=== PATIENT | male | born 1980 | race African-American/Black ===

== ENCOUNTER 2018-10-30 20:33 | Emergency (ER) | payer MEDICAID ==
[~2018-10-30] VITALS: Ht 182.9 cm; Wt 108.9 kg
[2018-10-30 21:04] VITALS: BP 215/107
--- NOTE | 2018-10-30 21:04 | NUR ---
TO BED # 11 AMBULATORY, REPORT GIVEN TO AAKASH HENRY.
--- NOTE | 2018-10-30 21:04 | NUR ---
CAME IN WITH C/O RIGHT SIDE FRONTAL HEADACHE RADIAITING ACROSS FOREHEAD X 2 DAYS. PT REPORTS HIGH BP AT HOME. DENIES VISUAL DISTURBANCES, LIGHTHEADEDNESS/DIZZINESS. DENIES CHEST PAIN. LUNGS CTAB, RESPIRATIONS EVEN AND UNLABORED.PT REPORTS COMPLIANCE TO BP MEDS. PMH: HTN, DM, HLD
[2018-10-30] MEDS ORDERED: cloNIDine 0.1 MG TAB PO ONE (21:40)
[2018-10-30] MEDS ORDERED: MORPHINE SULFATE 4 MG/ML SYR IVP ONE (22:00)
--- NOTE | 2018-10-30 22:02 | NUR ---
PT RETURN FROM CT
[2018-10-30] MEDS ORDERED: KETOROLAC 30 MG/ML VIAL IM ONE (22:10)
[2018-10-30] MEDS ORDERED: hydrALAZINE 20 MG/ML VIAL IVP ONE (23:00)
--- NOTE | 2018-10-30 23:10 | NUR ---
PT DENIES ANY HEADACHE, BUT BP CONTINUES TO BE HIGH: 223/127, [address] SALINAS AWARE.
[2018-10-30] MEDS ORDERED: METOPROLOL 5 MG/5 ML VIAL IVP ONE (23:35)
--- NOTE | 2018-10-31 00:12 | NUR ---
Dr. Moncada evaluating patient at bedside.
[2018-10-31 00:28] VITALS: BP 181/106
--- NOTE | 2018-10-31 00:29 | NUR ---
Patient discharged with v/s stable. Written and verbal after care instructions given and explained. Patient verbalized understanding. Ambulatory with steady gait. All questions addressed prior to discharge. Advised to follow up with PMD. ER MD AWARE OF PT BP. OKAY TO DISCHARGE PT.
== END 2018-10-31 00:29 | disposition home or self-care (01) ==
LOC: MED 20:33
DX: I10 Essential (primary) hypertension (principal); R51 Headache; E11.9 Type 2 diabetes mellitus without complications; E78.5 Hyperlipidemia, unspecified
CPT/HCPCS: 70450; 93005; 96372; 96374; 96375; 99284; J0360; J1885; J2270; J3490

== ENCOUNTER 2018-11-22 16:30 | Emergency (ER) | payer MEDICAID ==
[~2018-11-22] VITALS: Ht 182.9 cm; Wt 108.9 kg
[2018-11-22 16:50] VITALS: BP 190/109
--- NOTE | 2018-11-22 16:55 | NUR ---
PT BIB SELF CONCERNED FOR HAVING A STD , STATES HE FEELS "BURNING", NO D/C, RASH OR PAIN WHEN URINATING. REPORTS UNPROTECTED SEX WITH 1 NEW PARTNER. NO PAIN AT THIS TIME. VSS. ER MD TO SEE PT. PMH HTN, DM
[2018-11-22] MEDS ORDERED: cefTRIAXone 1,000 MG VIAL ONE (17:54)
[2018-11-22 18:45] VITALS: BP 157/99
--- NOTE | 2018-11-22 18:45 | NUR ---
Patient discharged with v/s stable. Written and verbal after care instructions given and explained. Patient alert, oriented and verbalized understanding of instructions. Ambulatory with steady gait. All questions addressed prior to discharge. ID band removed. Patient advised to follow up with PMD. Rx of AZITHROMYCIN,FLAGYL,CIPRO given. Patient educated on indication of medication including possible reaction and side effects. Opportunity to ask questions provided and answered.
== END 2018-11-22 18:45 | disposition home or self-care (01) ==
LOC: MED 16:30
DX: Z20.2 Contact with and (suspected) exposure to infections with a predominantly sexual mode of transmission (principal); I10 Essential (primary) hypertension; E11.9 Type 2 diabetes mellitus without complications
CPT/HCPCS: 96365; 99283; J0696

== ENCOUNTER 2018-12-24 06:58 | Inpatient (IN) | payer MEDICAID ==
[~2018-12-24] VITALS: Ht 180.3 cm; Wt 109.8 kg
[2018-12-24 07:05] VITALS: BP 198/108
--- NOTE | 2018-12-24 07:12 | NUR ---
Patient ambulated to bed 4. RN evaluating patient at bedside.
--- NOTE | 2018-12-24 07:21 | NUR ---
Eufemia doty in ED - 12/24/18 at 0723 by MEDMANISH BP 205/124, DR. RODRIGES AWARE AND WILL SEE PT
--- NOTE | 2018-12-24 07:23 | NUR ---
38 Y/O MALE W C/O GENERALIZED BODY ACHES & CHILLS & NAUSEA X2 DAYS. PT REPORTS BEING IN [place] AND DRINKING ALCOHOL THROUGHOUT THE WEEKEND. DENIES VOMITING/DIARRHEA/FEVER. SKIN IS COOL/DRY. PT IS AWAKE, ALERT AND ANSWERING QUESTIONS APPROPRIATELY WITH FULL COMPLETE SENTENCES. BP IS ELEVATED AT 198/121, PT STATES HE HAS NOT HAD HIS BP MEDICATION YET TODAY, ERMD AWARE. FSBS 159 AT THIS TIME. BED IN LOW POSITION, SIDE RAIL UP X1. PT PLACED ON BEDSIDE FINANCIAL INVESTMENT MANAGER.
--- NOTE | 2018-12-24 07:23 | NUR ---
BP 205/124, ASYMPTOMATIC, NO ACUTE DISTRESS NOTED. DR. RODRIGES AWARE AND WILL SEE PT.
[2018-12-24] MEDS ORDERED: ENALAPRILAT 2.5 MG/2 ML VIAL IVP ONE (07:35)
[2018-12-24] MEDS ORDERED: hydrALAZINE 20 MG/ML VIAL IVP ONE (07:35)
--- NOTE | 2018-12-24 07:37 | NUR ---
consulting technical manager at bedside.
--- NOTE | 2018-12-24 07:40 | NUR ---
Dr. Hill evaluating patient at bedside.
[2018-12-24 08:00] LABS: BASOPHILS % (AUTO) 0.7 % (0.0-2.0); EOSINOPHILS # (AUTO) 0.4 K/uL (0-0.4); EOSINOPHILS % (AUTO) 6.3 % (0.0-4.0); HEMATOCRIT 38.5 % (36-52); LYMPHOCYTES # (AUTO) 1.6 K/uL (2.0-11.5); LYMPHOCYTES % (AUTO) 28.3 % (20.5-51.1); MEAN CORPUSCULAR HEMOGLOBIN 28 pg (27-31); MEAN CORPUSCULAR HGB CONC 34 g/dL (33-37); MEAN CORPUSCULAR VOLUME 81.7 fL (80-94); MONOCYTES # (AUTO) 0.9 K/uL (0.8-1.0); MONOCYTES % (AUTO) 15.5 % (1.7-9.3); NEUTROPHILS # (AUTO) 2.8 K/uL (1.8-7.7); NEUTROPHILS % (AUTO) 49.2 % (42.2-75.2); PLATELET COUNT (AUTO) 151 K/uL (140-450); RED BLOOD CELL COUNT(AUTO) 4.72 MIL/uL (4.20-6.10); RED CELL DISTRIBUTION WIDTH 15.9 % (11.6-13.7); WHITE BLOOD COUNT (AUTO) 5.7 K/uL (4.8-10.8)
--- NOTE | 2018-12-24 08:00 | NUR ---
urine collected and sent to lab
[2018-12-24 08:22] LABS: ANION GAP 10.7 (8-16); CARBON DIOXIDE 25.8 mmol/L (21-32); CREATININE 1.7 mg/dL (0.7-1.3); POTASSIUM 3.5 mmol/L (3.5-5.1)
[2018-12-24 08:26] LABS: CHOL/HDL RATIO 6.9 (1-4.5)
[2018-12-24 08:27] LABS: ALBUMIN 3.8 g/dL (3.4-5.0); TOTAL BILIRUBIN 0.6 mg/dL (0.0-1.0)
[2018-12-24 08:34] LABS: CREATINE KINASE MB 1.9 ng/mL (0-3.6)
--- NOTE | 2018-12-24 08:59 | NUR ---
REPORT GIVEN TO CARL CHOU FOR CONTINUATION OF CARE.
--- NOTE | 2018-12-24 09:00 | NUR ---
REPORT RECIEVED FROM LILLIAM RN, PT SLEEPING IN BED. AROUSABLE TO NAME
[2018-12-24] MEDS ORDERED: METOPROLOL SUCCINATE 50 MG TABER PO ONE (09:15)
[2018-12-24] MEDS ORDERED: METOPROLOL SUCCINATE 50 MG TABER PO SCH (09:26)
--- NOTE | 2018-12-24 09:26 | NUR ---
CALLED PHARMACY FOR [facility]
[2018-12-24] MEDS ORDERED: ONDANSETRON 4 MG/2 ML VIAL IM/IVP PRN (09:40)
[2018-12-24] MEDS ORDERED: HYDROcodone/APAP 7.5/325 MG 1 TAB PO PRN (09:40)
[2018-12-24] MEDS ORDERED: ACETAMINOPHEN 325 MG TAB PO PRN (09:40)
[2018-12-24] MEDS ORDERED: DOCUSATE SODIUM 100 MG GELCAP PO PRN (09:40)
[2018-12-24 10:09] LABS: APPEARANCE,URINE CLEAR (CLEAR); BILIRUBIN,URINE NEGATIVE (NEGATIVE); BLOOD, URINE NEGATIVE (NEGATIVE); COLOR,URINE YELLOW (YELLOW); LEUKOCYTE ESTERASE ,URINE NEGATIVE (NEGATIVE); NITRITE, URINE NEGATIVE (NEGATIVE); PH,URINE 6.5 (5.0-9.0); UGLUCOSE NEGATIVE (NEGATIVE)
[2018-12-24 10:15] LABS: BARBITURATE, URINE NEG. ng/ml (NEG <=200); BENZODIAZEPINE, URINE NEG. ng/mL (NEG <=200); CANNABINOID, URINE POS. ng/mL (NEG <=50); COCAINE, URINE NEG. ng/mL (NEG <=300); OPIATE, URINE NEG. ng/mL (NEG <=2000); PHENCYCLIDINE SCREEN,URINE NEG. ng/mL (NEG <=25)
--- NOTE | 2018-12-24 10:17 | NUR ---
SPOKE WITH PEDRO FROM TELE FLOOR AND EXPLAINED THAT AFTER THE DR GOING IN TO EXPLAIN DX TO PT AND FAMILY COMING IN PT IN ANXIOUS AND BP IS NOW 199/110 AFTER BEING 165/98 APPROX. 1 HOUR AGO. I ASKED IF SHE WAS COMFORTABLE RECEIVING HIM WITH THAT HIGH BP, SHE STATED NO. PT WILL REMIAN IN ED UNTIL BP IS FURTHER CONTROLLED. DR. RODRIGES MADE AWARE. ENCOURAGED PT TO TRY TO RELAX TO HELP WITH BRINGING BP DOWN.
[2018-12-24] MEDS ORDERED: LABETALOL 250 MG in DEXTROSE 5% 200 ML IV SCH (10:20)
[2018-12-24 10:30] LABS: RBC,URINE 0-5 /HPF (0-5); WBC,URINE 0-5 /HPF (0-5)
--- NOTE | 2018-12-24 10:33 | NUR ---
PT STATES HE FEELS MORE CALM. BP NOW 156/85 WITHOUT ADMINISTERING ANY ADITIONAL MEDICATIONS. VT DR RODRIGES, PT CAN GO TO TELE FLOOR.
[2018-12-24] MEDS ORDERED: LABETALOL 100 MG/20 ML VIAL ONE (10:34)
[2018-12-24 10:35] LABS: PROTHROMBIN TIME 9.3 secs (10.8-13.4)
[2018-12-24] MEDS ORDERED: LORazepam 2 MG/ML VIAL IM/IVP PRN (10:35)
[2018-12-24] MEDS ORDERED: BENA40TA PO (10:36)
[2018-12-24] MEDS ORDERED: ATEN25TA7 PO (10:36)
[2018-12-24] MEDS ORDERED: AMLO10TA PO (10:36)
[2018-12-24] MEDS ORDERED: METF-988 PO (10:37)
[2018-12-24] MEDS ORDERED: GLIP5TAB4 PO (10:37)
[2018-12-24 10:43] VITALS: BP 185/107
--- NOTE | 2018-12-24 10:43 | NUR ---
RECEIVED BEDSIDE REPORT FROM ED NURSE. PT IS AMBULATORY AOX4 WITH NO COMPLAINTS OF PAIN OR REQUESTS AND FREE OF OBVIOUS SIGNS OF DISTRESS. LEFT WRIST IV SITE ASYMPTOMATIC AND INTACT. ALL SAFETY MEASURES IN PLACE AND CALL LIGHT WITHIN REACH. SKIN INTACT. BLOOD PRESSURE IS 185/107. DR. BECERRA BY BEDSIDE INFORMED ME TO RETAKE IT AFTER 15 MINUTES HAVE ELAPSED AND NOTIFY HER IF SYSTOLIC IS >160.
--- NOTE | 2018-12-24 10:43 | NUR ---
Patient will be admitted to care of DR. ALONZO. Admited to TELEMETRY. Will go to room 123-A. Belongings list completed. Report to RENETTA HENRY.
[2018-12-24] MEDS ORDERED: BENAZEPRIL 20 MG TAB PO SCH (11:00)
[2018-12-24] MEDS: amLODIPine 5 MG TAB PO SCH ×2 (11:00→11:38)
[2018-12-24] MEDS: ATENOLOL 25 MG TAB PO SCH ×2 (11:00→11:38)
[2018-12-24 11:01] LABS: FREE T4 (FREE THYROXINE) 1.09 ng/dL (0.76-1.46); MAGNESIUM 2.1 mg/dL (1.8-2.4); PHOSPHORUS 3.1 mg/dL (2.5-4.9); THYROID STIMULATING HORMONE 0.56 uIU/mL (0.34-3.74)
[2018-12-24] MEDS: NACL 0.9% 1,000 ML IV SCH ×2 (11:39→19:10)
[2018-12-24 12:00] VITALS: BP 171/100
[2018-12-24] MEDS: BLOOD GLUCOSE MONITORING 1 DEV DEV FS SCH ×3 (12:06→20:44)
--- NOTE | 2018-12-24 13:37 | NUR ---
PATIENT HAS BEEN SCREENED AND CATEGORIZED MODERATE NUTRITION RISK. PATIENT WILL BE SEEN WITHIN 3-5 DAYS OF ADMISSION. 12/27/18PATEL MURDOCK MBA, RD
--- NOTE | 2018-12-24 14:15 | NUR ---
ACQUIRED PATIENT BLOOD PRESSURE PER DR. BECERRA'S REQUEST. BLOOD PRESSURE IS 165/89, MD NOTIFIED. PT HAS NO OBVIOUS SIGNS OF DISTRESS WITH BREATHING SYMMETRICAL AND UNLABORED AT THIS TIME.
--- NOTE | 2018-12-24 15:30 | NUR ---
PT STATES HE IS NOT INTERESTED IN WAITING FOR THE ULTRASOUND WHILE BEING NPO AND INTENDS TO EAT HIS LUNCH SANDWICH AND DOES NOT CARE IF THEY HAVE TO POSTPONE PROCEDURE AND THE IMPLICATIONS OF RECEIVING PROCEDURE SOONER RATHER THAN LATER AFTER BEING EDUCATED PT IS STILL REFUSING. PT HAS NO OBVIOUS SIGNS OF DISTRESS AT THIS TIME.
--- NOTE | 2018-12-24 15:31 | NUR ---
PT RESTING IN BED BREATHING UNLABORED AND NO OBVIOUS SIGNS OF DISTRESS.
[2018-12-24 16:30] VITALS: BP 176/103
--- NOTE | 2018-12-24 16:52 | NUR ---
PATIENT IS REFUSING BLOOD SUGAR CHECK. PT STATES HE IS "NOT IN THE MOOD TO GET POKED" DUE TO FRUSTRATION FROM BEING NPO PENDING ULTRASOUND AND STATES HE IS UPSET THAT THEY TOLD HIM IT WOULD BE AT 3:00 PM AND HAS NOT YET HAPPENED AND WANTS TO EAT. I CONTACTED RADIOLOGY TO CLARIFY TIME AT 1630 AND WAS INFORMED THAT HE WOULD BE THE NEXT PATIENT THEY SEE. INFORMED PATIENT OF THIS BUT HE STATES HE IS STILL FRUSTRATED. Addendum: 12/24/18 at 1700 by Calixto Iraheta RN PT IS FREE OF SIGNS OF HYPOGLYCEMIA AND HYPERGLYCEMIA WITH NO CHANGES IN LOC.
--- NOTE | 2018-12-24 18:17 | NUR ---
PATIENT NOW AGREEABLE TO BLOOD SUGAR MONITORING. BG IS 150.
--- NOTE | 2018-12-24 19:15 | NUR ---
GAVE BEDSIDE REPORT TO NIGHT NURSE. PATIENT IN STABLE CONDITION
--- NOTE | 2018-12-24 19:17 | NUR ---
RECEIVED PT FROM RENETTA RN PT IS AAOX4 AMBULATORY, ON TELEMETRY SR IV ON LEFT HAND INFUSING WELL;, DENIES ANY KLPAIN AT THIS TIME INITIAL ASSESSMENT DONE
[2018-12-24 20:00] VITALS: BP 166/91
--- NOTE | 2018-12-24 20:00 | NUR ---
;DR ROSARIO WAS NOTIFY PT'S VITALS SIGNS AND ORDER TO FOLLOW
[2018-12-24] MEDS ORDERED: ENALAPRILAT 2.5 MG/2 ML VIAL IVP PRN (20:05)
[2018-12-24] MEDS: INSULIN LISPRO SLIDING SCALE 100 UNITS/ML VIAL SUBQ PRN (20:43)
--- NOTE | 2018-12-24 20:45 | NUR ---
BLOOD SUGAR TEST 154, PT REFUSED TO BE COVERAGE WITH INSULIN HUMALOG ORDER AND DR ANG TALKED TO THE PT THE IMPORTANT TO FOLLOW PROTOCOL FOR INSULIN ORDER AND PT REFUSED AND HE WANT PO MEDIC FOR DIABETES HE TAKE AT HOME.
[2018-12-24] MEDS ORDERED: ATORVASTATIN 20 MG TAB PO SCH (21:00)
--- NOTE | 2018-12-24 23:00 | NUR ---
PT WILL BE NPO POST MN FOR RENAL US IN AM
[2018-12-25] VITALS: BP 146/76
[2018-12-25] MEDS: NACL 0.9% 1,000 ML IV SCH (00:43)
--- NOTE | 2018-12-25 01:36 | NUR ---
PT SLEEPING WELL NOT DISTRESS NOTED ON TELEMETRY SR REMAIN STABLE AT THIS TIME
--- NOTE | 2018-12-25 03:46 | NUR ---
PT VOIDING WELL IV ON LEFT HAND INFUSING WELL , PT ON TELEMETRY SR, NOT DISTRESS NOTED AT THIS TIME
[2018-12-25 04:00] VITALS: BP 196/104
[2018-12-25] MEDS ORDERED: ATENOLOL 25 MG TAB PO SCH ×3 (05:00→09:00)
[2018-12-25 05:50] VITALS: BP 156/77
--- NOTE | 2018-12-25 05:50 | NUR ---
AFTER BP MEDC GIVEN BP IS 156/77 PT DENIES ANY PAIN ON TELEMETRY SR
[2018-12-25] MEDS ORDERED: cloNIDine 0.1 MG TAB PO PRN (06:30)
[2018-12-25] MEDS: BLOOD GLUCOSE MONITORING 1 DEV DEV FS SCH ×2 (06:46→12:07)
--- NOTE | 2018-12-25 06:47 | NUR ---
PT WAITING FOR RENAL US PT IS NPO , HE WILL BE ENDORSED TO DAY SHIFT NURSE FOR CONTINUE OF CARE
[2018-12-25 06:55] LABS: MAGNESIUM 2.1 mg/dL (1.8-2.4); PHOSPHORUS 2.9 mg/dL (2.5-4.9)
[2018-12-25 07:02] LABS: BASOPHILS % (AUTO) 0.5 % (0.0-2.0); EOSINOPHILS # (AUTO) 0.3 K/uL (0-0.4); EOSINOPHILS % (AUTO) 6.8 % (0.0-4.0); HEMATOCRIT 42.2 % (36-52); HEMOGLOBIN 14.1 g/dL (12.0-18.0); LYMPHOCYTES # (AUTO) 1.7 K/uL (2.0-11.5); LYMPHOCYTES % (AUTO) 34.8 % (20.5-51.1); MEAN CORPUSCULAR HEMOGLOBIN 27 pg (27-31); MEAN CORPUSCULAR HGB CONC 33 g/dL (33-37); MONOCYTES # (AUTO) 0.7 K/uL (0.8-1.0); MONOCYTES % (AUTO) 14.2 % (1.7-9.3); NEUTROPHILS # (AUTO) 2.1 K/uL (1.8-7.7); NEUTROPHILS % (AUTO) 43.7 % (42.2-75.2); PLATELET COUNT (AUTO) 157 K/uL (140-450); RED BLOOD CELL COUNT(AUTO) 5.15 MIL/uL (4.20-6.10); RED CELL DISTRIBUTION WIDTH 15.8 % (11.6-13.7); WHITE BLOOD COUNT (AUTO) 4.9 K/uL (4.8-10.8)
[2018-12-25 07:03] LABS: ANION GAP 16.2 (8-16); CARBON DIOXIDE 22.5 mmol/L (21-32); CREATININE 1.4 mg/dL (0.7-1.3); POTASSIUM 3.7 mmol/L (3.5-5.1)
--- NOTE | 2018-12-25 07:20 | NUR ---
RECEIVED BEDSIDE REPORT FROM NIGHT NURSE. PT IS RESTING IN BED STABLE WITH NO OBVIOUS SIGNS OF DISTRESS WITH BREATHING SYMMETRICAL AND UNLABORED. PT IS AOX4, WITH A LEFT WRIST 22 GAUGE IV THAT IS PATENT AND ASYMPTOMATIC INFUSING 30 ML/HR OF NORMAL SALINE. PATIENT IS VERBALIZING HE DOES NOT WANT HIS INSULIN ADMINISTERED "EVER" AND STATES HE CONTROLS HIS BLOOD SUGAR WITH ORAL MEDICATIONS. EDUCATED PATIENT ON SLIDING SCALE AND FAST ACTING INSULIN AND PRECAUTIONS TO MAINTAINING BLOOD SUGAR LEVELS THAT ARE ELEVATED. PATIENT STATES HE IS NOT INTERESTED AND DOES NOT WANT INJECTIONS OF INSULIN. ENDORSED BY NIGHT NURSE THAT MD IS AWARE OF THIS. ALL SAFETY MEASURES ARE IN PLACE WITH CALL LIGHT WITHIN REACH.
[2018-12-25 08:00] VITALS: BP 176/107
[2018-12-25] MEDS ORDERED: BENAZEPRIL 20 MG TAB PO SCH (09:00)
[2018-12-25] MEDS ORDERED: amLODIPine 5 MG TAB PO SCH (09:00)
[2018-12-25] MEDS ORDERED: PANTOPRAZOLE 40 MG TABEC PO SCH (09:00)
--- NOTE | 2018-12-25 09:25 | NUR ---
ADMINISTERED MEDICATIONS. PATIENT IS FREE OF SIGNS OF OBVIOUS DISTRESS WITH BREATHING EQUAL AND UNLABORED. EDUCATED PATIENT ON INDICATIONS OF MEDICATIONS. PT HAS NO REQUESTS AT THIS TIME.
[2018-12-25] MEDS ORDERED: hydrALAZINE 25 MG TAB PO SCH ×3 (10:44→21:00)
--- NOTE | 2018-12-25 11:25 | NUR ---
PT IS SITTING ON EDGE OF BED STATING HE IS FRUSTRATED HE CANT GO OUTSIDE AND FEELS RESTLESS. EXPLAINED HOSPITAL POLICY ON CAMPUS GROUNDS WHICH PATIENT STATES HE UNDERSTANDS BUT STILL WISHES HE COULD GO OUTSIDE AND GET FRESH AIR.
[2018-12-25 11:29] LABS: CKMB RELATIVE INDEX 0.4 (0.0-2.5); CREATINE KINASE MB 2.1 ng/mL (0-3.6)
--- NOTE | 2018-12-25 11:41 | NUR ---
SPOKE WITH PT ABOUT INDICATION FOR INSULIN AND IF HE WANTED TO STILL REFUSE SINCE HIS BLOOD SUGAR WAS 152. HE STATES HE IS AGREEABLE TO TAKING INSULIN NOW THAT HE UNDERSTANDS WHY WE GIVE INJECTIONS OF INSULIN.
--- NOTE | 2018-12-25 11:43 | NUR ---
PT IS STATING HE REFUSES TO HAVE HIS VITALS TAKEN, STATES THAT HE KNOWS "EVERYTHING WILL BE UP" AND IT WILL PUT HIM IN A BAD MOOD. EXPLAINED TO PT IMPORTANCE OF MONITORING VITALS, BUT HE STATES HE STILL WANTS TO REFUSE.
[2018-12-25 12:00] VITALS: BP 156/85
[2018-12-25] MEDS: INSULIN LISPRO SLIDING SCALE 100 UNITS/ML VIAL SUBQ PRN (12:06)
--- NOTE | 2018-12-25 13:50 | NUR ---
PT WALKING THROUGH HALLS WITH STEADY AMBULATION AND NO MOTOR IMPAIRMENTS OBVIOUS. PT REQUESTING HIS LINENS BE CHANGED WHICH I DID, THEN PT VISITOR IS NOW AT BEDSIDE TALKING TO PATIENT. PT HAS NO FURTHER REQUESTS AND HAS NO OBVIOUS SIGNS OF DISTRESS.
[2018-12-25 16:00] VITALS: BP 162/95
[2018-12-25 16:02] LABS: T4 (THYROXINE) 7.5 ug/dL (4.5 - 12.0)
--- NOTE | 2018-12-25 16:10 | NUR ---
PT SIGNED AMA PAPER AT 1600, DR RIDDLE SIGNED WELL AND PRESENT AT BEDSIDE. PT IV REMOVED CATHETER INTACT ALL BELONGINGS WITH PT AND ID BANDS REMOVED. PT IS NOT IN OBVIOUS SIGNS OF DISTRESS AT THIS TIME. Addendum: 12/25/18 at 1624 by Ketty Cosme RN PT STATES HE IS LEAVING AMA BECAUSE HE FEELS HE "HAS THIS UNDER CONTROL" AND PROMISES HE WILL FOLLOW UP WITH HIS PCP TOMORROW. NURSE AND PHYSICIAN INFORMED HIM ON CONSEQUENCE OF LEAVING IN NOT CONSISTENTLY MEDICALLY STABLE CONDITION. PT VERBALIZED UNDERSTANDING OF RISKS, BUT CONTINUED TO INSIST ON LEAVING AMA.
== END 2018-12-25 16:10 | disposition left against medical advice (07) | DRG 199 ==
LOC: MED 06:58 → MTU 09:39
PROVIDERS: ADMIT General Practice; ATTEND General Practice
DX: I16.0 Hypertensive urgency (principal); N17.0 Acute kidney failure with tubular necrosis; G90.9 Disorder of the autonomic nervous system, unspecified; E78.5 Hyperlipidemia, unspecified; E11.9 Type 2 diabetes mellitus without complications; F12.10 Cannabis abuse, uncomplicated; I10 Essential (primary) hypertension; Z79.899 Other long term (current) drug therapy; Z79.84 Long term (current) use of oral hypoglycemic drugs; Z83.3 Family history of diabetes mellitus; Z91.14 Patient's other noncompliance with medication regimen; Z53.21 Procedure and treatment not carried out due to patient leaving prior to being seen by health care provider
CPT/HCPCS: 36415; 71045; 80048; 80053; 80305; 81001; 82150; 82550; 82553; 82948; 83036; 83690; 83735; 83880; 84100; 84436; 84439; 84443; 84479; 84484; 85025; 85379; 85610; 85730; 87081; 93005; 93976; 96374; 96375; 99285; G0482; J0360; J1644; J1815; J3490; J7030; Q0092

== ENCOUNTER 2022-07-15 09:56 | Emergency (ER) | payer MEDICAID ==
[~2022-07-15] VITALS: Ht 180.3 cm; Wt 92.1 kg
[~2022-07-15 09:56] MED LIST: AMLO10TA PO; ATEN25TA7 PO; BENA40TA PO; GLIP5TAB14 PO; METF-1243 PO
[2022-07-15 10:00] VITALS: BP 188/116
--- NOTE | 2022-07-15 10:18 | NUR ---
41/M WALKED IN C/O FALL S/P LEG WEAKNESS. PT REPORTS CHRONIC AND INTERMITTENT LEG WEAKNESS S/P BACK SX IN 2017. PT WAS SEEN BY PCP ON 2019 FOR SAME S/SX AND HAD MRI DONE. PT DENIES LOC OR ANY INJURY AT THIS TIME. DENIES ANY PAIN AT THIS TIME.
[2022-07-15] MEDS ORDERED: INSULIN REGULAR, HUMAN 100 UNIT/ML VIAL SUBQ ONE (11:50)
[2022-07-15] MEDS ORDERED: NACL 0.9% 1,000 ML IV ONE (11:50)
[2022-07-15 12:11] LABS: BASOPHILS # (AUTO) 0.1 K/uL (0.00-0.22); EOSINOPHILS # (AUTO) 0.5 K/uL (0-0.4); EOSINOPHILS % (AUTO) 4.9 % (0.0-4.0); HEMATOCRIT 40.7 % (36-52); HEMOGLOBIN 13.8 g/dL (12.0-18.0); LYMPHOCYTES # (AUTO) 2.2 K/uL (2.0-11.5); LYMPHOCYTES % (AUTO) 22.6 % (20.5-51.1); MEAN CORPUSCULAR HEMOGLOBIN 27 pg (27-31); MEAN CORPUSCULAR HGB CONC 34 g/dL (33-37); MEAN CORPUSCULAR VOLUME 80.8 fL (80-94); MONOCYTES # (AUTO) 0.7 K/uL (0.8-1.0); MONOCYTES % (AUTO) 7.1 % (1.7-9.3); NEUTROPHILS # (AUTO) 6.2 K/uL (1.8-7.7); NEUTROPHILS % (AUTO) 64.4 % (42.2-75.2); PLATELET COUNT (AUTO) 186 K/uL (140-450); RED BLOOD CELL COUNT(AUTO) 5.04 MIL/uL (4.20-6.10); RED CELL DISTRIBUTION WIDTH 15.3 % (11.6-13.7); WHITE BLOOD COUNT (AUTO) 9.6 K/uL (4.8-10.8)
--- NOTE | 2022-07-15 12:17 | NUR ---
IV ESTABLISHED TO RIGHT HAND WITH 20G.BLOOD DRAWN. UNABLE TO PROVIDE URINE AT THIS TIME. PT WILL ATTEMPT LATER.
--- NOTE | 2022-07-15 12:30 | NUR ---
RN TOOK VBG FOR RT TO RUN. RT UNABLE TO RUN BLOOD DUE TO TECHNICAL ERROR ON THE MICHINE AT THE TIME. DR FULTON WAS OK WITH NOT GETING ANOTHER VBG AT THIS TIME. RN AWARE
[2022-07-15 12:44] LABS: ALBUMIN 3.1 g/dL (3.4-5.0); ANION GAP 12.6 (8-16); CARBON DIOXIDE 28.5 mmol/L (21-32); CREATININE 2.9 mg/dL (0.6-1.3); POTASSIUM 5.1 mmol/L (3.5-5.1); TOTAL BILIRUBIN 0.5 mg/dL (0.0-1.0)
[2022-07-15 12:57] LABS: BILIRUBIN,URINE NEGATIVE (NEGATIVE); BLOOD, URINE 1+ (NEGATIVE); COLOR,URINE YELLOW (YELLOW); LEUKOCYTE ESTERASE ,URINE NEGATIVE (NEGATIVE); NITRITE, URINE NEGATIVE (NEGATIVE); UGLUCOSE 3+ (NEGATIVE)
[2022-07-15 12:58] LABS: APPEARANCE,URINE SLIGHTLY HAZY (CLEAR)
[2022-07-15 13:00] VITALS: BP 165/95
[2022-07-15 13:10] LABS: CALCIUM OXALATE CRYSTALS,UR None Seen /HPF (None Seen); COARSE GRANULAR CASTS,URINE None Seen /LPF (None Seen); FINE GRANULAR CASTS,URINE None Seen /LPF (None Seen); HYALINE CASTS, URINE None Seen /LPF (None Seen); OTHER CASTS, URINE None Seen /LPF (None Seen); OTHER CRYSTALS,URINE None Seen /HPF (None Seen); RBC,URINE 0-5 /HPF (0-5); RED BLOOD CELL CASTS,URINE None Seen /LPF (None Seen); TRICHOMONAS,URINE None Seen /HPF (None Seen); TRIPLE PHOSPHATE CRYSTAL,UR None Seen /HPF (None Seen); URIC ACID CRYSTALS,URINE None Seen /HPF (None Seen); URINE AMORPHOUS URATE None Seen /HPF (None Seen); WAXY CASTS,URINE None Seen /LPF (None Seen); WBC,URINE NONE SEEN /HPF (0-5); YEAST,URINE None Seen /HPF (None Seen)
--- NOTE | 2022-07-15 13:23 | NUR ---
ATTEMPTED TO DRAW VBG X2 BUT PER RT, KEEPS CLOTTING. ERMD AWARE.
[2022-07-15] MEDS ORDERED: ACET-2619 PO (13:56)
== END 2022-07-15 14:00 | disposition home or self-care (01) ==
LOC: MED 09:56
DX: G62.9 Polyneuropathy, unspecified (principal); E11.65 Type 2 diabetes mellitus with hyperglycemia; G89.29 Other chronic pain; M47.816 Spondylosis without myelopathy or radiculopathy, lumbar region; M51.26 Other intervertebral disc displacement, lumbar region; I10 Essential (primary) hypertension; Z79.899 Other long term (current) drug therapy; Z79.84 Long term (current) use of oral hypoglycemic drugs; Z98.890 Other specified postprocedural states
CPT/HCPCS: 36415; 72131; 80053; 81001; 85025; 96360; 96372; 99284; J1815; J7030; 96361